=== PATIENT | male | born 1985 | race Two or more races ===

== ENCOUNTER 2016-08-13 15:01 | Emergency (ER) | payer MEDICAID, OTHER ==
[~2016-08-13] VITALS: Ht 170.2 cm; Wt 88.5 kg
[2016-08-13 15:10] VITALS: BP 142/70
[2016-08-13 15:36] LABS: Basophils # (auto) 0.1 uL; Basophils % (auto) 0.5 % (0.0-2.0); Eosinophils # (auto) 0 uL; Eosinophils % (auto) 0.1 % (0.0-7.0); Hematocrit 42.8 % (41.0-53.0); Hemoglobin 14.2 g/dL (13.5-17.5); Lymphocytes # (auto) 1.3 uL; Lymphocytes % (auto) 9.7 % (10.0-50.0); Mean Corpuscular Hemoglobin 29.5 pg (28.0-32.0); Mean Corpuscular Hgb Conc. 33.2 g/dL (32.0-36.0); Mean Corpuscular Volume 88.9 fL (80.0-100.0); Mean Platelet Volume 8.9 fL (7.4-10.4); Monocytes # (auto) 1.3 uL; Monocytes % (auto) 9.6 % (0.0-12.0); Neutrophils # (auto) 10.7 uL; Neutrophils % (auto) 80.1 % (37.0-80.0); Platelet Count (auto) 223 10^3/uL (140-450); Red Cell Distribution Width 13.6 % (11.6-16.0); White Blood Cell 13.4 10^3/uL (4.4-10.8)
[2016-08-13 15:53] LABS: Albumin 4.4 g/dL (3.4-5.0); Anion Gap 12 (5-15); Blood Urea Nitrogen 20 mg/dL (7-18); Calcium 9.3 mg/dL (8.5-10.1); Carbon Dioxide 23 mmol/L (21-32); Chloride 105 mmol/L (98-107); Glucose 110 mg/dL (74-106); Potassium 3.3 mmol/L (3.5-5.1); Sodium 140 mmol/L (136-145)
[2016-08-13 15:55] LABS: Aspartate Aminotransferase 16 U/L (15-37); BUN/Creatinine Ratio 16.5; GFR African American 91 mL/min; GFR Non-African American 75 mL/min
[2016-08-13 16:00] LABS: Alkaline Phosphatase 63 U/L (45-117); Bilirubin, Total 2.1 mg/dL (0.2-1.0); Total Protein 8.3 g/dL (6.4-8.2)
[2016-08-13] MEDS ORDERED: LEVOFLOXACIN 500 MG TAB PO ONE (16:30)
[2016-08-13] MEDS ORDERED: POTASSIUM CHL 10% (20 MEQ/15ML) ORAL SOLN PO ONE (16:30)
[2016-08-13] MEDS ORDERED: ASPirin 81 mg TAB PO ONE (16:30)
== END 2016-08-13 17:13 | disposition home or self-care (01) ==
LOC: ER 15:05
DX: R07.89 Other chest pain (principal); J40 Bronchitis, not specified as acute or chronic; F17.210 Nicotine dependence, cigarettes, uncomplicated; F12.10 Cannabis abuse, uncomplicated; F15.10 Other stimulant abuse, uncomplicated; Z88.1 Allergy status to other antibiotic agents; Z88.6 Allergy status to analgesic agent
CPT/HCPCS: 36415; 71020; 80053; 84484; 85025; 93005

== ENCOUNTER 2018-02-04 14:10 | Emergency (ER) | payer MEDICAID ==
[~2018-02-04] VITALS: Ht 172.7 cm; Wt 117.5 kg
[2018-02-04 15:57] VITALS: BP 127/83
== END 2018-02-04 16:27 | disposition home or self-care (01) ==
LOC: ER 14:10
DX: J02.9 Acute pharyngitis, unspecified (principal); F17.210 Nicotine dependence, cigarettes, uncomplicated; F15.10 Other stimulant abuse, uncomplicated; J45.909 Unspecified asthma, uncomplicated

== ENCOUNTER 2018-08-09 22:43 | Emergency (ER) | payer MEDICAID ==
[~2018-08-09] VITALS: Ht 172.7 cm; Wt 106.6 kg
[2018-08-09 22:48] VITALS: BP 151/95
== END 2018-08-10 00:05 | disposition home or self-care (01) ==
LOC: EDBD 22:43 → ER 22:47
DX: L02.413 Cutaneous abscess of right upper limb (principal); L03.113 Cellulitis of right upper limb; Z88.0 Allergy status to penicillin; Z88.6 Allergy status to analgesic agent